=== PATIENT | female | born 1990 | race African-American/Black ===

== ENCOUNTER 2017-07-05 13:00 | Emergency (ER) | payer MEDICAID ==
[~2017-07-05] VITALS: Ht 162.6 cm; Wt 60.3 kg
--- NOTE | 2017-07-05 13:24 | Emergency Room Report ---
History of Present Illness General Chief Complaint: General Complaint Source: Patient Present Illness HPI The patient is a 26-year-old female presenting for possible miscarriage. She states that she is approximately one week late for her menstruation which is usually on time. She is sexually active without use of contraceptives. She states that she noticed a large piece of tissue passed yesterday as well as abdominal cramping. She has been having spotting today with nausea but denies vomiting. She denies any pain at this time. She denies any other symptoms including fever, chills, back pain, dysuria Allergies: Coded Allergies: No Known Allergies (Unverified , 07/05/17) Patient History Past Medical History: see triage record Pertinent Family History: none Last Menstrual Period: 06/06/16 Reviewed Nursing Documentation: PMH: Agreed, PSxH: Agreed Nursing Documentation-PMH Past Medical History: No Stated History Review of Systems All Other Systems: negative except mentioned in HPI Physical Exam Vital Signs Date Time Temp Pulse Resp B/P (MAP) Pulse Ox O2 Delivery O2 Flow Rate FiO2 07/05/17 13:02 98.1 78 20 124/82 99 Room Air Sp02 EP Interpretation: reviewed, normal General Appearance: no apparent distress, alert, GCS 15, non-toxic Head: normocephalic, atraumatic Eyes: bilateral eye normal inspection, bilateral eye PERRL ENT: hearing grossly normal, normal pharynx, no angioedema, normal voice Gastrointestinal: tenderness - suprapubic Rectal: deferred Genitourinary: normal inspection, no CVA tenderness Musculoskeletal: back normal, gait/station normal, normal range of motion, non- tender Neurologic: alert, oriented x3, responsive, motor strength/tone normal, sensory intact, speech normal Psychiatric: judgement/insight normal, memory normal, mood/affect normal, no suicidal/homicidal ideation Skin: normal color, no rash, warm/dry, well hydrated Lymphatic: no adenopathy Medical Decision Making PA Attestation Dr. Fritz is my supervising physician. Patient management was discussed with my supervising physician Diagnostic Impression: Primary Impression: Miscarriage ER Course The patient is a 26-year-old female presenting for possible miscarriage Differential diagnoses considered include but not limited to Early , threatened , incomplete , complete , ectopic , hemorrhagic cyst PE: vitals stable. NAD Abdomen is soft. There is tenderness to palpation over suprapubic region only. No CVA tenderness CBC, CMP unremarkable. Urine preg: neg Beta hC UA: no signs of infection The patient is given IV fluids and Zofran and is feeling better. She was informed of the results. It is most likely patient has experienced a miscarriage. ER precautions are Laboratory Tests Test 07/05/17 13:08 07/05/17 13:50 Urine Color Pale yellow Urine Appearance Cloudy Urine pH 7 (4.5-8.0) Urine Specific [place] 1.015 (1.005-1.035) Urine Protein 1+ (NEGATIVE) H Urine Glucose (UA) Negative (NEGATIVE) Urine Ketones Negative (NEGATIVE) Urine Occult Blood 5+ (NEGATIVE) H Urine Nitrite Negative (NEGATIVE) Urine Bilirubin Negative (NEGATIVE) Urine Urobilinogen Normal MG/DL (0.0-1.0) Urine Leukocyte Esterase Negative (NEGATIVE) Urine RBC Tntc /HPF (0 - 2) H Urine WBC 2-4 /HPF (0 - 2) Urine Squamous Epithelial Cells Moderate /LPF (NONE/OCC) H Urine Bacteria Few /HPF (NONE) Urine HCG, Qualitative Negative White Blood Count 6.7 K/UL (4.8-10.8) Red Blood Count 4.34 M/UL (4.20-5.40) Hemoglobin 14.1 G/DL (12.0-16.0) Hematocrit 42.3 % (37.0-47.0) Mean Corpuscular Volume 98 FL (80-99) Mean Corpuscular Hemoglobin 32.5 PG (27.0-31.0) H Mean Corpuscular Hemoglobin Concent 33.3 G/DL (32.0-36.0) Red Cell Distribution Width 10.9 % (11.6-14.8) L Platelet Count 244 K/UL (150-450) Mean Platelet Volume 7.7 FL (6.5-10.1) Neutrophils (%) (Auto) 52.4 % (45.0-75.0) Lymphocytes (%) (Auto) 33.9 % (20.0-45.0) Monocytes (%) (Auto) 9.4 % (1.0-10.0) Eosinophils (%) (Auto) 2.9 % (0.0-3.0) Basophils (%) (Auto) 1.4 % (0.0-2.0) Prothrombin Time 11.1 SEC (9.30-11.50) Prothrombin Time INR 1.1 (0.9-1.1) PTT 28 SEC (23-33) Sodium Level 140 MMOL/L (136-145) Potassium Level 4.1 MMOL/L (3.5-5.1) Chloride Level 107 MMOL/L (98-107) Carbon Dioxide Level 26 MMOL/L (21-32) Anion Gap 7 (5-15) Blood Urea Nitrogen 6 mg/dL (7-18) L Creatinine 0.9 MG/DL (0.55-1.00) Estimate Glomerular Filtration Rate > 60 mL/min (>60) Glucose Level 82 MG/DL (74-106) Calcium Level 8.9 MG/DL (8.5-10.1) Total Bilirubin 0.7 MG/DL (0.2-1.0) Aspartate Amino Transferase (AST) 16 U/L (15-37) Alanine Aminotransferase (ALT) 14 U/L (12-78) Alkaline Phosphatase 59 U/L (46-116) Total Protein 7.5 G/DL (6.4-8.2) Albumin 4.1 G/DL (3.4-5.0) Globulin 3.4 g/dL Albumin/Globulin Ratio 1.2 (1.0-2.7) Human Chorionic Gonadotropin, Quant < 1 mIU/mL Lab Results Impression CBC, CMP unremarkable. Urine preg: neg Beta hC UA: no signs of infection Last Vital Signs Date Time Temp Pulse Resp B/P (MAP) Pulse Ox O2 Delivery O2 Flow Rate FiO2 07/05/17 13:02 98.1 78 20 124/82 99 Room Air Status: improved Disposition: HOME, SELF-CARE Condition: Improved Scripts Ondansetron* (ZOFRAN*) 4 Mg Tablet 4 MG ORAL Q6H Y for Nausea & Vomiting, #10 TAB Prov: SALVADOR JOHNSON P.AMarcie 07/05/17 Acetaminophen* (TYLENOL EXTRA STRENGTH*) 500 Mg Tablet 500 MG ORAL Q8H Y for Prn Headache/Temp > 101, #30 TAB 0 Refills Prov: SALVADOR JOHNSON P.A. 07/05/17 SALVADOR JOHNSON P.Elo Jul 05, 2017 13:24
[2017-07-05 13:42] VITALS: BP 124/82
[2017-07-05 14:06] LABS: BASOPHILS % (AUTO) 1.4 % (0.0-2.0); EOSINOPHILS % (AUTO) 2.9 % (0.0-3.0); LYMPHOCYTES % (AUTO) 33.9 % (20.0-45.0); MEAN CORPUSCULAR HEMOGLOBIN 32.5 PG (27.0-31.0); MEAN CORPUSCULAR HGB CONC 33.3 G/DL (32.0-36.0); MEAN CORPUSCULAR VOLUME 98 FL (80-99); MEAN PLATELET VOLUME 7.7 FL (6.5-10.1); MONOCYTES % (AUTO) 9.4 % (1.0-10.0); NEUTROPHILS % (AUTO) 52.4 % (45.0-75.0); PLATELET COUNT 244 K/UL (150-450); RED BLOOD COUNT 4.34 M/UL (4.20-5.40); RED CELL DISTRIBUTION WIDTH 10.9 % (11.6-14.8); WHITE BLOOD COUNT 6.7 K/UL (4.8-10.8)
[2017-07-05 14:12] LABS: INR 1.1 (0.9-1.1); PROTHROMBIN TIME 11.1 SEC (9.30-11.50)
[2017-07-05 14:16] LABS: ALANINE AMINOTRANSFERASE 14 U/L (12-78); ALBUMIN/GLOBULIN RATIO 1.2 (1.0-2.7); ANION GAP 7 (5-15); ASPARTATE AMINO TRANSFERASE 16 U/L (15-37); CALCIUM 8.9 MG/DL (8.5-10.1); CARBON DIOXIDE 26 MMOL/L (21-32); CHLORIDE 107 MMOL/L (98-107); CREATININE 0.9 MG/DL (0.55-1.00); GLOMERULAR FILTRATION RATE > 60 mL/min (>60); POTASSIUM 4.1 MMOL/L (3.5-5.1); SODIUM 140 MMOL/L (136-145); TOTAL PROTEIN 7.5 G/DL (6.4-8.2)
[2017-07-05 14:18] LABS: APPEARANCE,URINE CLOUDY; KETONES,URINE NEGATIVE (NEGATIVE); LEUKOCYTE ESTERASE ,URINE NEGATIVE (NEGATIVE); NITRITE,URINE NEGATIVE (NEGATIVE); PH,URINE 7 (4.5-8.0); PROTEIN,URINE 1+ (NEGATIVE); UROBILINOGEN,URINE NORMAL MG/DL (0.0-1.0)
[2017-07-05 14:42] LABS: BACTERIA,URINE FEW /HPF; RBC,URINE TNTC /HPF (0 - 2); SQUAMOUS EPITHELIAL CELL,UR MODERATE /LPF (NONE/OCC)
[2017-07-05] MEDS ORDERED: ZOFRAN4 M3 ORAL (14:55)
[2017-07-05] MEDS ORDERED: TYLENOL EXTRA500 MG ORAL (14:55)
[2017-07-05 15:08] VITALS: BP 124/82
== END 2017-07-05 15:11 | disposition home or self-care (01) ==
LOC: EMR 13:30
DX: O03.9 Complete or unspecified spontaneous abortion without complication (principal)
CPT/HCPCS: 36415; 80053; 81003; 81025; 84702; 85025; 85610; 85730; 86850; 86900; 86901; 96361; 96374; 99284; J2405

== ENCOUNTER 2017-12-13 10:32 | Emergency (ER) | payer MEDICAID ==
[~2017-12-13] VITALS: Ht 162.6 cm; Wt 59.0 kg
[~2017-12-13 10:32] MED LIST: TYLENOL EXTRA500 MG ORAL; ZOFRAN4 M3 ORAL
[2017-12-13 11:07] VITALS: BP 117/82
[2017-12-13 12:15] LABS: APPEARANCE,URINE CLEAR; BILIRUBIN, URINE NEGATIVE (NEGATIVE); GLUCOSE, URINE (UA) NEGATIVE (NEGATIVE); KETONES,URINE NEGATIVE (NEGATIVE); LEUKOCYTE ESTERASE ,URINE 1+ (NEGATIVE); NITRITE,URINE NEGATIVE (NEGATIVE); PH,URINE 5 (4.5-8.0); PROTEIN,URINE 2+ (NEGATIVE); UROBILINOGEN,URINE NORMAL MG/DL (0.0-1.0)
[2017-12-13 12:18] LABS: COLOR,URINE YELLOW
[2017-12-13 12:25] VITALS: BP 117/82
[2017-12-13] MEDS ORDERED: IBUPROFEN600 MG ORAL (12:36)
--- NOTE | 2017-12-13 12:56 | Emergency Room Report ---
History of Present Illness General Chief Complaint: Vaginal Source: Patient Present Illness HPI Patient presents with complaints of abnormal vaginal bleeding and possible miscarriage Patient reports that her last menstrual cycle was last week She only had bleeding for a few days Which is not normal for her She has continued to have right lower suprapubic discomfort and pressure since then And presents for further eval Denies any lower abdominal pain denies any vaginal discharge and as any dysuria or frequency denies any upper abdominal pain Allergies: Coded Allergies: No Known Allergies (Unverified , 07/05/17) Patient History Past Medical History: see triage record Pertinent Family History: none Last Menstrual Period: 2-18 : 3 Para: 0 Reviewed Nursing Documentation: PMH: Agreed, PSxH: Agreed Nursing Documentation-PMH Past Medical History: No Stated History Review of Systems All Other Systems: negative except mentioned in HPI Physical Exam Vital Signs Date Time Temp Pulse Resp B/P (MAP) Pulse Ox O2 Delivery O2 Flow Rate FiO2 12/13/17 10:44 98.0 83 18 117/82 98 Room Air 98.1 Sp02 EP Interpretation: reviewed, normal General Appearance: well appearing, no apparent distress Head: normocephalic, atraumatic Eyes: bilateral eye PERRL, bilateral eye EOMI ENT: hearing grossly normal, normal pharynx, TMs + canals normal, uvula midline Neck: full range of motion, supple, no meningismus, no bony tend Respiratory: lungs clear, normal breath sounds, no rhonchi, no respiratory distress, no retraction, no accessory muscle use Cardiovascular #1: normal peripheral pulses, regular rate, rhythm, no edema, no gallop, no JVD, no murmur Gastrointestinal: normal bowel sounds, non tender - Patient subjectively points to the right suprapubic area, soft, no mass, no organomegaly, non- distended, no guarding, no hernia, no pulsatile mass, no rebound Genitourinary: no CVA tenderness Musculoskeletal: normal inspection Neurologic: oriented x3, responsive, laboratory technician III-XII nml as tested, motor strength/ tone normal, sensory intact Psychiatric: mood/affect normal Skin: normal color, no rash, warm/dry, palpation normal Lymphatic: normal inspection, no adenopathy Medical Decision Making Diagnostic Impression: Primary Impression: dysfunctional uterine bleeding ER Course With the patient's history and examination, multiple differentials considered, including but not limited to , ectopic , ovarian torsion, gastritis, cholecystitis, pancreatitis, appendicitis Patient's urine test was negative Ultrasound does not show any obvious torsion or cyst Consideration for appendicitis is also made however the location of discomfort is suprapubic does not involve the abdominal region Patient also afebrile and no complaints of any intra-abdominal discomfort patient nevertheless requires close outpatient follow-up and will return with any concerns or changes Labs Test 12/13/17 10:50 12/13/17 12:15 Urine Color Yellow Urine Appearance Clear Urine pH 5 (4.5-8.0) Urine Specific [place] 1.020 (1.005-1.035) Urine Protein 2+ (NEGATIVE) Urine Glucose (UA) Negative (NEGATIVE) Urine Ketones Negative (NEGATIVE) Urine Occult Blood Negative (NEGATIVE) Urine Nitrite Negative (NEGATIVE) Urine Bilirubin Negative (NEGATIVE) Urine Urobilinogen Normal MG/DL (0.0-1.0) Urine Leukocyte Esterase 1+ (NEGATIVE) Urine RBC 0-2 /HPF (0 - 2) Urine WBC 2-4 /HPF (0 - 2) Urine Squamous Epithelial Cells Few /LPF (NONE/OCC) Urine Bacteria Occasional /HPF (NONE) Urine HCG, Qualitative Negative (NEGATIVE) CT/MRI/US Diagnostic Results CT/MRI/US Diagnostic Results : Impression Pelvic ultrasound: Refer to report for full specifics no obvious acute pathology Last Vital Signs Date Time Temp Pulse Resp B/P (MAP) Pulse Ox O2 Delivery O2 Flow Rate FiO2 12/13/17 11:07 98.1 18 117/82 98 Room Air 98.1 12/13/17 10:44 83 Status: improved Disposition: HOME, SELF-CARE Condition: Improved Scripts Ibuprofen* (MOTRIN*) 600 Mg Tablet 600 MG ORAL Q8H Y for For Pain, #20 TAB 0 Refills Prov: Winnie Lion DO 12/13/17 Referrals: NOT CHOSEN IPA/MD,REFERRING (PCP) Patient Instructions: Dysfunctional Uterine Bleeding Additional Instructions: Patient is provided with the discharge instructions notified to follow up with primary doctor in the next 2-3 days otherwise return to the er with any worsening symptoms. Please note that this report is being documented using DRAGON technology. This can lead to erroneous entry secondary to incorrect interpretation by the dictating instrument. Winnie Lion DO Dec 13, 2017 12:56
--- NOTE | 2017-12-13 13:16 | Diagnostic Imaging Report ---
Indication: Pelvic pain. Last menstrual period 11/15/2017. Technique: Transabdominal and endovaginal pelvic ultrasound was performed. Findings: The uterus measures 7.1 x 5 x 4.3 cm. Endometrium is 1.3 m in thickness. Within the lower endometrial canal there is some echogenic material. No color flow is noted within this material upon interrogation with Doppler. Right ovary measures 4.1 x 3.3 x 2.1 cm. The left ovary measures 3. 2 x 2 1.8 cm. Both ovaries contain multiple small simple appearing/follicular cysts. Vascular flow to the bilateral ovaries is seen. IMPRESSION: Echogenic material in the endometrial . If patient recently this may represent retained products. There is no history of , this may represent menstrual blood. Correlation with clinical history/exam and beta hCG recommended. Short-term interval follow-up ultrasound was recommended to assure resolution of this finding. No evidence to suggest ovarian torsion at this time.
== END 2017-12-13 14:45 | disposition home or self-care (01) ==
LOC: EMR 12:03
DX: N93.8 Other specified abnormal uterine and vaginal bleeding (principal)
CPT/HCPCS: 36415; 76856; 81003; 81025; 99284